=== PATIENT | male | born 1980 | race Caucasian/White ===

== ENCOUNTER 2018-07-30 19:39 | Day surgery (SDC) | payer OTHER ==
--- NOTE | 2018-07-30 20:05 | PCM.HP ---
H&P History of Present Illness - General Date of Service: 07/30/18 Source of Information: Patient, Old Records History Limitations: Reports: No Limitations - History of Present Illness Duration of Symptoms: Reports: Day(s): (3), Waxing/Waning Location: Reports: Abdomen (RLQ). Denies: Radiates to Quality: Reports: Pressure, Sharp Improves with: Reports: None Worsens with: Reports: Movement Associated Symptoms: Reports: Nausea/Vomiting Past Medical History - Past Surgical History HEENT Surgical History: Reports: Tonsillectomy H&P Review of Systems - Review of Systems: Review Of Systems: See Below General: Reports: No Symptoms. Denies: Fever, Chills HEENT: Reports: No Symptoms Pulmonary: Reports: No Symptoms Cardiovascular: Reports: No Symptoms Gastrointestinal: Reports: Abdominal Pain (RLQ) Genitourinary: Reports: No Symptoms Musculoskeletal: Reports: No Symptoms Exam - Exam Exam: See Below - Vital Signs Vital Signs: Last Vital Signs Temp 98 F 07/30/18 19:40 Pulse 88 07/30/18 19:40 Resp 24 H 07/30/18 19:40 BP 141/107 H 07/30/18 19:40 Pulse Ox 93 L 07/30/18 19:40 - Exam General: Alert, Oriented Lungs: Clear to Auscultation, Normal Respiratory Effort Cardiovascular: Regular Rate, Regular Rhythm GI/Abdominal Exam: Soft, No Mass, Tender (RLQ). No: Hernia - Patient Data Lab Results Last 24 hrs: Reviewed from [place] [facility] Impressions Last 24 hrs: CT reviewed from [place], shows acute appendicitis Problem List Initiated/Reviewed/Updated: Yes Orders Last 24hrs: Active Orders 24 hr Category Date Time Status Piperacillin/Tazobactam [Zosyn] 3.375 gm Med 07/30/18 20:00 Ordered Sodium Chloride 0.9% [Normal Saline] 50 ml IV Q6H Medication Orders Piperacillin Sod/Tazobactam (Sod 3.375 gm/ Sodium Chloride) 50 mls @ 100 mls/ hr IV Q6H [facility] Assessment/Plan Comment:: Will proceed with lap appy, possibly open Discussed procedure, risks and complications, informed consent obtained
[2018-07-30] MEDS: Piperacillin/Tazobactam 3.375 GM in Sodium Chloride 0.9% 50 ML IV SCH (20:21)
[2018-07-30] MEDS ORDERED: Succinylcholine 200 MG/10 ML MDV IV ONE (20:30)
[2018-07-30] MEDS ORDERED: Neostigmine Methylsulfate 10 MG/10 ML MDV IVPUSH ONE (20:30)
[2018-07-30] MEDS ORDERED: Propofol 200 MG/20 ML SDV IV ONE (20:30)
[2018-07-30] MEDS ORDERED: HYDROmorphone 2 MG/ML SDV IV ONE (20:30)
[2018-07-30] MEDS ORDERED: Ondansetron 4 MG/2 ML SDV IVPUSH ONE (20:30)
[2018-07-30] MEDS ORDERED: Ketorolac 30 MG/ML SDV IVPUSH ONE (20:30)
[2018-07-30] MEDS ORDERED: Lactated Ringers 1,000 ML IV ONE (20:30)
[2018-07-30] MEDS ORDERED: Glycopyrrolate 0.2 MG/ML 5 ML MDV IV ONE (20:30)
[2018-07-30] MEDS ORDERED: Midazolam 1 MG/ML 2 ML SDV IV ONE (20:30)
[2018-07-30] MEDS ORDERED: Rocuronium 100 MG/10 ML MDV IV ONE (20:30)
[2018-07-30] MEDS ORDERED: fentaNYL 100 MCG/2 ML SDV IV ONE (20:30)
[2018-07-30] MEDS ORDERED: Promethazine 25 MG/ML SDV IM PRN (21:50)
--- NOTE | 2018-07-30 21:50 | PCM.OPNOTE ---
- General Post-Op/Procedure Note Date of Surgery/Procedure: 07/30/18 Operative Procedure(s): Lap Appy Findings: Acute Appendicitis Pre Op Diagnosis: Acute Appendicitis Post-Op Diagnosis: Same Anesthesia Technique: General ET Tube Primary Surgeon: Jw Cortez Pathology: Appendix EBL in mLs: 10 Complications: None Condition: Good
[2018-07-30] MEDS: Lactated Ringers 1,000 ML IV SCH (22:29)
[2018-07-31] MEDS: Acetaminophen/HYDROcodone 325-7.5 MG Tab PO PRN ×2 (00:04→04:18)
[2018-07-31] MEDS: Piperacillin/Tazobactam 3.375 GM in Sodium Chloride 0.9% 50 ML IV SCH ×2 (01:57→08:36)
[2018-07-31] MEDS: Sodium Chloride 0.9% 10 ML Syringe FLUSH PRN ×2 (01:57→02:35)
--- NOTE | 2018-07-31 02:07 | OR ---
DATE OF OPERATION: 07/30/2018 SURGEON: Jw Cortez MD PREOPERATIVE DIAGNOSIS: Acute appendicitis. POSTOPERATIVE DIAGNOSIS: Acute appendicitis. PROCEDURE: Laparoscopic appendectomy. ANESTHESIA: General. DESCRIPTION OF PROCEDURE: The patient was brought to the operating room, where general endotracheal anesthesia was administered. Time-out was performed. Abdomen was prepped with ChloraPrep and draped sterilely. An infraumbilical incision was made and extended into the peritoneal cavity without difficulty. The Lauro cannulator was introduced and pneumoperitoneum obtained. A 5-mm ports were placed in the suprapubic position and intermediate between the umbilicus and pubis. The patient was placed in Trendelenburg position and rotated to his left. The omentum and small bowel were covering the right lower quadrant area. I was able to identify the cecum and eventually a large inflamed appendix. This was encased in small bowel mesentery that was peeled away with blunt dissection, and some filmy adhesions were transected sharply. This allowed me to completely visualize the appendix to its base at the cecum. A window was made at the base of the appendix and the appendix transected with an Endo-TAWANNA 3.5 mm stapler at the base of the cecum. Another application of the Endo-TAWANNA 2.5 mm stapler was used to transect the mesoappendix. Appendix was brought part of way out through the umbilical incision and tore. I placed the remnant in an Endopouch and removed without difficulty. Right lower quadrant was thoroughly irrigated and inspected, and return was clear, and hemostasis was assured. Staple lines were intact. Ports were removed under direct vision and remained hemostatic. Umbilical fascia was closed with [id number] #0 Vicryl. Skin was closed with #4-0 Vicryl subcuticular sutures. Benzoin and Steri-Strips were placed, and Band-Aids applied. The patient tolerated the procedure well and returned to Recovery in stable condition. ESTIMATED BLOOD LOSS: 10 mL. /[id number] 200 EBONY/REBECCA
[2018-07-31] MEDS: HYDROmorphone 2 MG/ML SDV IVPUSH PRN ×2 (04:48→08:11)
[2018-07-31] MEDS: Lactated Ringers 1,000 ML IV SCH (05:54)
[2018-07-31] MEDS ORDERED: Ketorolac 30 MG/ML SDV IVPUSH ONE (09:27)
--- NOTE | 2018-07-31 12:25 | PCM.PN ---
- General Info Date of Service: 07/31/18 Functional Status: Reports: Pain Controlled, Tolerating Diet, Ambulating, Urinating - Review of Systems General: Reports: No Symptoms Gastrointestinal: Reports: No Symptoms - Patient Data Vitals - Most Recent: Last Vital Signs Temp 98.8 F 07/31/18 08:00 Pulse 91 07/31/18 08:00 Resp 18 07/31/18 08:00 BP 115/66 07/31/18 08:00 Pulse Ox 95 07/31/18 09:14 Weight - Most Recent: 126.87 kg I&O - Last 24 Hours: Intake & Output 07/30/18 07/31/18 07/31/18 22:59 06:59 14:59 Intake Total 1650 200 Output Total 300 400 Balance 1350 -200 Med Orders - Current: Current Medications Hydrocodone Bitart/Acetaminophen ([place] 325-7.5 Mg) 1 tab PO Q4H PRN PRN Reason: Pain (moderate 4-6) Last Admin: 07/31/18 04:18 Dose: 1 tab Hydromorphone HCl (Dilaudid) 1 mg IVPUSH Q1H PRN PRN Reason: Pain (moderate 4-6) Last Admin: 07/31/18 08:11 Dose: 1 mg Piperacillin Sod/Tazobactam (Sod 3.375 gm/ Sodium Chloride) 50 mls @ 100 mls/ hr IV Q6H [facility] Last Admin: 07/31/18 08:36 Dose: 100 mls/hr Lactated Ringer's (Ringers, Lactated) 1,000 mls @ 125 mls/hr IV ASDIRECTED [facility] Last Admin: 07/31/18 05:54 Dose: 125 mls/hr Promethazine HCl (Phenergan) 25 mg IM Q6H PRN PRN Reason: Nausea Sodium Chloride (Saline Flush) 10 ml FLUSH ASDIRECTED PRN PRN Reason: flush Last Admin: 07/31/18 02:35 Dose: 10 ml Discontinued Medications Ketorolac Tromethamine (Toradol) 30 mg IVPUSH ONETIME ONE Stop: 07/31/18 09:28 Last Admin: 07/31/18 10:23 Dose: 30 mg - Exam General: Alert, Oriented GI/Abdominal Exam: Soft, Non-Tender, Other (Incisions look good) - Problem List Review Problem List Initiated/Reviewed/Updated: Yes - My Orders Last 24 Hours: My Active Orders 07/30/18 20:00 Piperacillin/Tazobactam [Zosyn] 3.375 gm Sodium Chloride 0.9% [Normal Saline] 50 ml IV Q6H 07/30/18 20:25 Admission Status [Patient Status] [ADT] Routine 07/30/18 21:49 Vital Signs [RC] 08,12,16,20,00,04 Resuscitation Status Routine 07/30/18 21:50 RT Incentive Spirometry [RC] Q2HWA Acetaminophen/HYDROcodone [[place] 325-7.5 MG] 1 tab PO Q4H PRN HYDROmorphone [Dilaudid] 1 mg IVPUSH Q1H PRN Promethazine [Phenergan] 25 mg IM Q6H PRN 07/30/18 21:51 Oxygen Therapy [RC] PRN 07/30/18 22:00 Lactated Ringers [Ringers, Lactated] 1,000 ml IV ASDIRECTED 07/31/18 02:07 Sodium Chloride 0.9% [Saline Flush] 10 ml FLUSH ASDIRECTED PRN 07/31/18 Lunch Soft Diet [DIET] - Assessment Assessment:: Doing well POD #1 - Plan Plan:: Will discharge to home, f/u 1 week Will proceed with lap appy, possibly open Discussed procedure, risks and complications, informed consent obtained
== END 2018-07-31 13:00 | disposition home or self-care (01) ==
LOC: FB.MS 19:39 → FB.SDS 19:39
PROVIDERS: ATTEND Surgery
DX: K35.891 Other acute appendicitis without perforation, with gangrene (principal); I10 Essential (primary) hypertension; E66.01 Morbid (severe) obesity due to excess calories; G47.33 Obstructive sleep apnea (adult) (pediatric); Z99.89 Dependence on other enabling machines and devices; Z79.899 Other long term (current) drug therapy
CPT/HCPCS: 44970; 88304; 94150; A9270; J0330; J1170; J1885; J2250; J2405; J2543; J2704; J2710; J3010; J3490; J7050; J7120